=== PATIENT | female | born 1955 | race Caucasian/White ===

== ENCOUNTER 2019-08-18 21:46 | Outpatient (REF) | payer MEDICARE, SELFPAY ==
[2019-08-18 22:36] LABS: Anion Gap 9.1 mmol/L (3-11); BUN 22 mg/dL (7-18); CO2 28.9 mmol/L (21.0-32.0); CREATININE 0.84 mg/dL (0.55-1.02); Calcium 9.8 mg/dL (8.5-10.1); Calculated LDL 176 mg/dL (<100); Chloride 102 mmol/L (98-107); Cholesterol 282 mg/dL (<200); Glucose 91 mg/dL (74-106); HDL Cholesterol 53 mg/dL (40-60); Potassium 4.2 mmol/L (3.5-5.1); Sodium 140 mmol/L (136-145); TSH 17.78 uIU/mL (0.36-3.74); Triglyceride 269 mg/dL (<150)
== END 2019-08-18 22:06 ==
LOC: NCHCN 21:46
PROVIDERS: Visit Provider Nurse Practitioner Family
DX: E03.9 Hypothyroidism, unspecified (principal); R63.5 Abnormal weight gain
CPT/HCPCS: 80048; 80061; 84443

== ENCOUNTER 2020-01-25 12:07 | Outpatient (REF) | payer MEDICARE, MEDICAID, SELFPAY ==
[2020-01-25 21:26] LABS: Anion Gap 13.2 mmol/L (3-11); BUN 24 mg/dL (7-18); CO2 21.8 mmol/L (21.0-32.0); CREATININE 0.85 mg/dL (0.55-1.02); Calcium 10.3 mg/dL (8.5-10.1); Chloride 103 mmol/L (98-107); Glucose 104 mg/dL (74-106); Potassium 4.6 mmol/L (3.5-5.1); Sodium 138 mmol/L (136-145); TSH 4.54 uIU/mL (0.36-3.74)
== END 2020-01-25 12:27 ==
LOC: NCHCN 12:07
PROVIDERS: Visit Provider Nurse Practitioner Family
DX: E03.9 Hypothyroidism, unspecified (principal); I10 Essential (primary) hypertension; F43.21 Adjustment disorder with depressed mood; E78.5 Hyperlipidemia, unspecified
CPT/HCPCS: 80048; 84443

== ENCOUNTER 2020-03-16 19:10 | Outpatient (REF) | payer MEDICARE, MEDICAID, SELFPAY ==
[2020-03-16 22:48] LABS: Calculated LDL 197 mg/dL (<100); Cholesterol 326 mg/dL (<200); HDL Cholesterol 53 mg/dL (40-60); Triglyceride 380 mg/dL (<150)
[2020-03-16 23:18] LABS: FREE T4 0.82 ng/dL (0.76-1.46)
[2020-03-17 09:18] LABS: ALT 36 U/L (14-59); AST 18 U/L (15-37); Albumin 4.6 g/dL (3.4-5.0); Alkaline Phosphatase 88 U/L (46-116); Anion Gap 13.6 mmol/L (3-11); BUN 20 mg/dL (7-18); Bilirubin, Total 0.4 mg/dL (0.2-1.0); CO2 24.4 mmol/L (21.0-32.0); CREATININE 0.89 mg/dL (0.55-1.02); Calcium 10.6 mg/dL (8.5-10.1); Chloride 102 mmol/L (98-107); Glucose 94 mg/dL (74-106); Potassium 3.7 mmol/L (3.5-5.1); Sodium 140 mmol/L (136-145); Total Protein 7.9 g/dL (6.4-8.2)
== END 2020-03-16 19:30 ==
LOC: NCHCN 19:10
PROVIDERS: Visit Provider Nurse Practitioner Family
DX: E03.9 Hypothyroidism, unspecified (principal); I10 Essential (primary) hypertension; R63.5 Abnormal weight gain; E78.5 Hyperlipidemia, unspecified
CPT/HCPCS: 80053; 80061; 84439; 84443

== ENCOUNTER 2020-04-08 13:48 | Outpatient (REF) | payer MEDICARE, MEDICAID, SELFPAY ==
[2020-04-13 17:00] LABS: Patient Race White; SARS-CoV-2 RNA Undetected (Undetected); SARS-CoV-2 Specimen Source Nasal
== END 2020-04-08 14:08 ==
LOC: NCHCN 13:48
PROVIDERS: Visit Provider Nurse Practitioner Family
DX: R05 Cough (principal)
CPT/HCPCS: U0003